=== PATIENT | male | born 1995 | race Caucasian/White ===

== ENCOUNTER → 2023-08-10 | Outpatient (CLI) | payer MEDICAID ==
--- NOTE | 2023-08-11 21:39 | CA ---
Transthoracic Echo Report Name: Jose Cm Age: 27 Gender: M : 1995 Exam Date: 08/10/2023 16:58 Exam Location: [facility] Ht (in): 72 Wt (lb): 375 Ordering Physician: Shaneka Blair DO Attending/Referring Phys: Mini Shifter Odalys Quintana [facility] Procedure CPT: Indications: R00.2 palpitations Cardiac Hx: Technical Quality: Technically difficult study Contrast 1: Total Dose (mL): Contrast 2: Total Dose (mL): MEASUREMENTS (Male / Female) Normal Values 2D ECHO LV Diastolic Diameter PLAX 4.7 cm 4.2 - 5.9 / 3.9 - 5.3 cm LV Systolic Diameter PLAX 3.0 cm IVS Diastolic Thickness 1.0 cm 0.6 - 1.0 / 0.6 - 0.9 cm LVPW Diastolic Thickness 0.9 cm 0.6 - 1.0 / 0.6 - 0.9 cm LV Relative Wall Thickness 0.4 LVOT Diameter 2.2 cm M-MODE Aortic Root Diameter MM 3.4 cm LA Systolic Diameter MM 3.7 cm LA Ao Ratio MM 1.1 AV Cusp Separation MM 2.3 cm DOPPLER AV Peak Velocity 115.4 cm/s AV Peak Gradient 5.3 mmHg AV Mean Velocity 84.2 cm/s AV Mean Gradient 3.2 mmHg AV Velocity Time Integral 17.5 cm LVOT Peak Velocity 93.4 cm/s LVOT Peak Gradient 3.5 mmHg LVOT Velocity Time Integral 17.2 cm LVOT Stroke Volume 65.3 cm??? LVOT Stroke Volume Index 23.5 ml/m??? LVOT Cardiac Index 2242.1 cm???/min???m??? AV Area Cont Eq vti 3.7 cm??? AV Area Cont Eq pk 3.1 cm??? Mitral E Point Velocity 63.5 cm/s Mitral A Point Velocity 61.2 cm/s Mitral E to A Ratio 1.0 MV Deceleration Time 164.1 ms LV E' Lateral Velocity 11.6 cm/s Mitral E to LV E' Lateral Ratio 5.5 LV E' Septal Velocity 7.4 cm/s Mitral E to LV E' Septal Ratio 8.6 Right Atrial Pressure 3.0 mmHg FINDINGS Left Ventricle Left ventricular wall thickness at upper limits of normal. Left ventricular cavity size normal. Normal left ventricular systolic function with no obvious regional wall motion abnormalities. Left ventricular ejection fraction is estimated at 55-60%. Right Ventricle Not well visualized Right Atrium Not well visualized Left Atrium Not well visualized Mitral Valve Structurally normal mitral valve. Trace mitral regurgitation. Aortic Valve Aortic valve not well visualized. No aortic valve stenosis or regurgitation. Tricuspid Valve Tricuspid valve not well visualized. Pulmonic Valve Pulmonic valve not well visualized. Pericardium No pericardial effusion. Echo free space anterior to the right ventricle likely represents a fat pad. Aorta Aorta at upper limits of normal. CONCLUSIONS Technically difficult study. Left ventricular ejection fraction is estimated at 55-60%. No obvious regional wall motion abnormalities. No significant valvular disease on color Doppler Epicardial fat Previewed by: Dr Joshua Rouse (Electronically Signed) Final Date: 11 August 2023 21:38
== END | disposition home or self-care (01) ==
LOC: RADECHMAIN 16:46
PROVIDERS: ATTEND Family Medicine
DX: R00.2 Palpitations (principal)
CPT/HCPCS: 93306

== ENCOUNTER 2024-02-17 19:48 | Emergency (ER) | payer OTHER, BC ==
[2024-02-17 21:17] VITALS: RESP 18; TEMP 97.6
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
[2024-02-17 22:41] VITALS: BP 121/81; PULSE 85
== END 2024-02-17 22:40 | disposition home or self-care (01) ==
LOC: EC 19:48
DX: S06.0XAA Concussion with loss of consciousness status unknown, initial encounter (principal); F17.290 Nicotine dependence, other tobacco product, uncomplicated; V89.2XXA Person injured in unspecified motor-vehicle accident, traffic, initial encounter; Y92.410 Unspecified street and highway as the place of occurrence of the external cause
CPT/HCPCS: 70450; 72125; 72131; 99284

== ENCOUNTER → 2024-05-25 | Outpatient (CLI) | payer OTHER, MEDICAID ==
[~2024-05-25] MED LIST: FAMOTIDINE 20 MG/2 ML VIAL ONE; SODIUM CHLORIDE 0.9% 50 ML BAG ONE; SODIUM CHLORIDE 0.9% 500 ML BAG ONE; diphenhydrAMINE 50 MG/ML 1 ML VIAL ONE
--- NOTE | 2024-06-16 08:11 | MR ---
Patient: Jose Cm Ordering Physician: Unknown, Unknown ID: [id number] Phone, Pager: Phone: N/A Pager: N/A : 1995 Age/Gender: 28Y, M Primary Location: N/A Procedure: MR cervical spine wo Sharad dickinson Date: 05/25/2024 6:07:04 PM EXAMINATION TYPE: MR cervical spine w con DATE OF EXAM: 06/08/2024 2:34 PM CLINICAL INDICATION: Headaches bilateral arm numbness COMPARISON: 05/12/2024, 02/17/2024. TECHNIQUE: Multi planar, multi sequence imaging was performed utilizing: T1-weighted, T2-weighted, an d turbo inversion recovery imaging of the cervical spine. IV Contrast: cc (none if empty) FINDINGS: Alignment: The cervical vertebral bodies have preserved heights. Alignment is within normal limits gi david patient positioning. Bones: Osteophytes and disc space narrowing most pronounced at the C5-C7 vertebral levels. Cord: The spinal cord is unremarkable with regards to their signal intensity and morphology. Discs: Intervertebral disc signal is maintained. C2-C3: No significant disc pathology. The spinal canal is patent. No neural foraminal stenosis. C3-C4: No significant disc pathology. The spinal canal is patent. No neural foraminal stenosis. C4-C5: No significant disc pathology. The spinal canal is patent. No neural foraminal stenosis. C5-C6: No significant disc pathology. The spinal canal is patent. No neural foraminal stenosis. C6-C7: No significant disc pathology. The spinal canal is patent. No neural foraminal stenosis. C7-T1: No significant disc pathology. The spinal canal is patent. No neural foraminal stenosis. Other: None. IMPRESSION: 1. No evidence for disc herniation or significant spinal canal stenosis. 2. Mild disc degeneration with associated osteoarthritic changes.
== END | disposition home or self-care (01) ==
LOC: RADMRIMAIN 19:15
PROVIDERS: ATTEND Orthopaedic Surgery
DX: M54.10 Radiculopathy, site unspecified (principal); M47.812 Spondylosis without myelopathy or radiculopathy, cervical region; M50.30 Other cervical disc degeneration, unspecified cervical region
CPT/HCPCS: 72141

== ENCOUNTER → 2024-08-03 | Outpatient (CLI) | payer BC, OTHER ==
[2024-08-03 11:17] VITALS: BP 150/94; PULSE 102; RESP 16
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
== END ==
LOC: PNWHC3 09:06
PROVIDERS: ATTEND Specialist
DX: M47.22 Other spondylosis with radiculopathy, cervical region (principal); F17.290 Nicotine dependence, other tobacco product, uncomplicated
CPT/HCPCS: 99211

== ENCOUNTER → 2024-08-18 | Day surgery (SDC) | payer MEDICAID, OTHER ==
[~2024-08-18] MED LIST changes: +DEXAMETHASONE SOD PHOSPHATE 10 MG/ML 1 ML VIAL ONE; -FAMOTIDINE 20 MG/2 ML VIAL ONE; +IOPAMIDOL M200 10 ML VIAL ONE; +LACTATED RINGERS 1,000 ML IV SCH; -SODIUM CHLORIDE 0.9% 50 ML BAG ONE; -SODIUM CHLORIDE 0.9% 500 ML BAG ONE; -diphenhydrAMINE 50 MG/ML 1 ML VIAL ONE
[2024-08-18 09:28] VITALS: TEMP 98.5
--- NOTE | 2024-08-18 09:47 | P.PCN ---
Date of Procedure: 08/18/24 Procedure(s) Performed: . PROCEDURE 1. Cervical epidural steroid injection under fluoroscopic guidance, C6-7 (fluoroscopy images available in the radiology department ) 2. Cervical epidurogram. PREOPERATIVE DIAGNOSIS: 1- Cervical radiculopathy. POSTOPERATIVE DIAGNOSIS: : 1- Cervical radiculopathy. ANESTHESIA: Local anesthesia with lidocaine 1% 3 ml only EBL 0 PROCEDURE INDICATION: The patient with neck pain and radiculitis unresponsive to conservative treatment consents for procedure. PROCEDURE DESCRIPTION / TECHNIQUE: The patient was seen and identified in the preoperative area. Risks, benefits, complications, including but not limited to infections ,bleeding , allergic reactions to the medications ,and not complete pain releife, and alternatives were discussed with the patient, the patient agreed to proceed with the procedure and signed the consent. Patient was taken to the OR and time out was completed. The patient was placed in the prone position on the procedure table. A pillow was placed under the patients chest to increase the cervical interlaminar space. The cervical area was prepped and draped in the usual sterile fashion. Vital signs were closely monitored during the procedure. Using anterior-posterior fluoroscopy, the C6-7 interlaminar space was identified and the skin over this site was marked and then infiltrated with 1% lidocaine subcutaneously. Subsequently, a 20-gauge 3-1/2-inch Tuohy epidural needle was inserted and advanced toward the epidural space by means of the ``hanging-drop technique and guided by AP and lateral fluoroscopy. The correct needle position in the epidural space was verified with the injection of 2 mL of the water soluble contrast dye [id number]-[id number] and observing an excellent epidurogram with the epidural spread of the dye, after negative aspiration for blood and CSF and in the absence of paresthesias. then, mixture containing 20 mg Dexamethasone and 2 ml of preservative-free normal saline injected and a washout of epidurogram was seen. Needle was withdrawn intact, skin was cleansed, and bandages were applied. Complications= none. Disposition= patient was placed in supine position and transferred to the recovery room area in stable condition and there was no evidence of upper or lower extremity motor or sensory deficit after the procedure patient was discharged from recovery room after discharge criteria met and home discharge instructions was given by the staff and patient will follow with the pain clinic in 2-4 weeks
[2024-08-18 09:53] VITALS: RESP 14
--- NOTE | 2024-08-18 09:57 | FL ---
EXAMINATION TYPE: FL guided pain mgmt statistic DATE OF EXAM: 08/18/2024 FLUOROSCOPY cerv Epid Inj 12 FLUORO TIME .[address] Lewis One image submitted [facility], , 08/18/2024 9:55 AM
[2024-08-18 10:14] VITALS: BP 142/89; PULSE 81
== END ==
LOC: ORPAIN 08:50
PROVIDERS: ATTEND Specialist
DX: M54.12 Radiculopathy, cervical region (principal)
CPT/HCPCS: 62321; J1100; Q9966

== ENCOUNTER → 2024-09-08 | Outpatient (CLI) | payer MEDICAID, OTHER ==
[2024-09-08 14:01] VITALS: BP 145/93; PULSE 95; RESP 16
--- NOTE | 2024-09-08 14:22 | P.PAINPG ---
PQRS Measure Charge Sheet Comment: HISTORY OF PRESENT ILLNESS: A 28 yr old male presents today w severe and chronic neck pain > 3 mo secondary to radiculopathy, spondylosis and facet arthropathy without myelopathy for evaluation s/p ROMAIN C6-C7 #1. Pt states he experienced >50 % pain relief x 3 wks s/p procedure. Pt states pain level is provoked at 5-6 /10 in intensity, intermittent, localized in the head, predominantly axial, dull in character without shooting pain. Pain is provoked by UEs in certain positions. Pain is alleviated by PT x 4 wks which ended in February 2024, physician guided home exercises 5 weekly since February 2024, heat, medications, topical, repositioning and rest . Interventional procedures include ROMAIN C6-C7 x1 Medications include Fioricet, Naproxen, Heath-Akhtar REVIEW OF ORGAN SYSTEMS: CONSTITUTIONAL: No fevers or chills. No recent weight loss. NEUROLOGICAL: + numbness and tingling along the distal extremities. No seizure disorders or headaches. MUSCULOSKELETAL: + pain PSYCHIATRIC: Denies current depression or suicidal thoughts. Physical Examinations : Constitutional : Cooperative , not in acute distress . Neurologic : Cranial nerve II to XII intact. No focal neurological deficits. Psychiatric : alert & oriented x 3. Matching mood & appropriate affect. Judgment & insight intact. Musculoskeletal : Cervical Spine Motor strength in the deltoid and biceps: Normal right side. Normal Left side Motor strength biceps and the wrist extensors: Normal right side . Normal left side Motor strength in the triceps muscle: Normal right side. Normal left side Deep tendon reflexes: Normal at the biceps. Normal at Brachioradialis. Normal at triceps Vertebral body tenderness to deep palpation over C6 Duran test positive BL C6-C7 Cervical facet loading test: positive bilaterally Spurling test: positive bilaterally Neck distraction test: positive bilaterally Abby sign: positive bilaterally Lumbar spine Motor strength lower extremities ,thigh and legs 5/5 Right side , 5/5 Left side Deep tendon reflexes : Normal Knee Jerk. Normal Ankle Jerk Vertebral body tenderness over Duran Test positive Lumbar facet Loading Test: positive Right / positive Left Range of motion of the lumbar spine Flexion 30 degrees, extension 10 degrees Straight Leg Raise test: Left/ Right positive at degrees Regino test: positive right / positive left. Severe tenderness over the Sacroiliac joint on the Right / Left sides Gaenslen test: positive bilaterally Seated flexion test: positive bilaterally. Sacral spine : Severe tenderness over the Sacroiliac joint: right side / left side Range of motion: Flexion of the lumbar spine <60 degrees Range of motion: Extension of the lumbar spine <20 degrees Gaenslen's Test positive Regino test: positive right side / left side Thigh Thrust Test Sacral Thrust Test Imaging: MRI non contrast cervical spine from 06/08/24 reviewed Assessment/ Plan : Cervical radiculopathy Recommendation of followup w neurologist for intractable headaches. Script for skull x ray G44.221. All questions answered. I have spent greater than 30 minutes on patient care today. Dr Fitzgerald was available by phone for the evaluation of this patient. The time was used to review the medical records including relevant urine studies and Prescription history (MAPs), review of the available imaging, evaluation and examination of the patient, coordination of care with the medical staff and if applicable referring physicians, as well as creation of the medical record PQRS Narrative: Hx Alcohol Use (MH) No Home Medications: Ambulatory Orders Butalb/Acetaminophen/Caffeine [Fioricet 50-300-40 mg Capsule] 1 - 2 cap PO Q4HR 08/03/24 Dextroamphetamine/Amphetamine [Adderall] 30 mg PO BID 08/03/24 Omeprazole 20 mg PO DAILY 08/03/24 Sertraline [Zoloft] 150 mg PO DAILY 08/03/24 amLODIPine 10 mg PO DAILY 08/03/24 buPROPion XL [Wellbutrin XL] 300 mg PO DAILY 08/03/24 hydroCHLOROthiazide [Hydrodiuril] 12.5 mg PO DAILY 08/03/24 Controlled Substance Measures - Controlled Substance Measures Is patient prescribed a controlled substance at discharge?: No
--- NOTE | 2024-09-08 15:21 | XR ---
EXAMINATION TYPE: XR skull complete DATE OF EXAM: 09/08/2024 3:08 PM INDICATION: Patient age:Male; 28 years old; Reason for study: G44.221; [facility]. COMPARISON: None. TECHNIQUE: Frontal, posterior, and bilateral lateral views views of the skull. FINDINGS: No evidence of acute fracture. No evidence to suggest radiopaque foreign body. Soft tissues appear within normal limits. IMPRESSION: No evidence of acute fracture. If there is continued clinical concern, consider further evaluation wi CT[facility], , 09/08/2024 3:18 PM
== END ==
LOC: PNWHC3 13:43
PROVIDERS: ATTEND Specialist
DX: G44.219 Episodic tension-type headache, not intractable (principal); M47.22 Other spondylosis with radiculopathy, cervical region
CPT/HCPCS: 70260; 99211